=== PATIENT | female | born 1990 | race Caucasian/White ===

== ENCOUNTER 2017-07-08 21:47 | Inpatient (IN) | payer BC ==
[~2017-07-08] VITALS: Ht 162.6 cm; Wt 74.8 kg
[~2017-07-08 21:47] MED LIST: IBUPROFEN800 MG PO; IRON160 M1 PO; IRON325 MG PO; PRENATAL VITAM1 EAC1 PO
[2017-07-08 22:01] VITALS: BP 135/78
[2017-07-08 23:31] VITALS: BP 131/80
[2017-07-08 23:37] LABS: EOSINOPHIL (%) 0.3 % (0-5); HEMATOCRIT 33.7 % (36.0-46.0); IMMATURE GRANULOCYTE (%) 0.7 % (0.0-0.7); IMMATURE GRANULOCYTE COUNT 0.1 K/uL; INSTRUMENT ABS NEUTROPHIL CT 10.9 K/uL; LYMPHOCYTE COUNT 2.3 K/uL (1.0-2.8); MCH 21.6 PG (29.0-34.0); MCHC 31.8 G/DL (30.0-36.0); MCV 68.1 FL (83-99); MEAN PLAT.VOLUME 10.1 uM^3 (9.5-12.4); MONOCYTE (%) 5.4 % (3-12); MONOCYTE COUNT 0.8 K/uL (0-0.8); NEUTROPHIL COUNT 10.9 K/uL (1.8-6.4); PLATELET COUNT 266 K/uL (156-360); RBC DIS.WIDTH-CV 14.6 % (11.8-14.6); RBC DIS.WIDTH-SD 34.6 % (39-53); RED BLOOD COUNT 4.95 M/uL (3.80-5.20); WHITE BLOOD COUNT 14.2 K/uL (4.1-10.2)
[2017-07-09] VITALS (12 sets, daily range): BP systolic 96–130; BP diastolic 51–79
[2017-07-09] MEDS ORDERED: IBUPROFEN800 MG PO (08:50)
[2017-07-10 07:52] VITALS: BP 108/55
[2017-07-10 15:22] VITALS: BP 101/61
[2017-07-10 23:11] VITALS: BP 109/52
[2017-07-11 07:45] VITALS: BP 99/60
== END 2017-07-11 14:48 | disposition home or self-care (01) | DRG 774 ==
LOC: LDRP-OP 21:47 → 2WEST 21:50
PROVIDERS: Obstetrics & Gynecology Gynecology
DX: O75.2 Pyrexia during labor, not elsewhere classified (principal); Z37.0 Single live birth; Z3A.39 39 weeks gestation of pregnancy; O70.1 Second degree perineal laceration during delivery; O69.81X1 Labor and delivery complicated by cord around neck, without compression, fetus 1; O63.0 Prolonged first stage (of labor); D50.9 Iron deficiency anemia, unspecified; O99.02 Anemia complicating childbirth
CPT/HCPCS: 85025; 86850; 86900; 86901; 87070; 87075; 87076; 87205; 88307; G0378; J7120

== ENCOUNTER → 2018-01-27 | Outpatient (CLI) | payer OTHER | END | disposition home or self-care (01) | LOC: CDC 11:52 | DX: R94.31 Abnormal electrocardiogram [ECG] [EKG] (principal); R06.00 Dyspnea, unspecified | CPT/HCPCS: 93000 ==

== ENCOUNTER → 2018-05-19 | Outpatient (CLI) | payer OTHER | END | disposition home or self-care (01) | LOC: CDC 12:21 | DX: R94.31 Abnormal electrocardiogram [ECG] [EKG] (principal) | CPT/HCPCS: 93000 ==